=== PATIENT | female | born 1970 | race Caucasian/White ===

== ENCOUNTER → 2018-04-19 09:35 | Outpatient (CLI) | payer BC, MEDICARE ==
[2015-05-16 14:41] VITALS: BMI 23.3
[~2018-04-19 09:35] MED LIST: APRISO0.375 GM PO; CYMBALTA60 MG PO; LIBRAX CAPSULE1 CAP PO; LIPITOR20 MG PO; NEURONTIN 300300 MG PO; PRILOSEC20 MG PO
[2018-04-19 10:08] LABS: BASOPHILS 0.3 % (0-2); EOSINOPHILS 1.9 % (0-7); HEMATOCRIT 39.6 % (36.0-48.0); HEMOGLOBIN 13.4 g/dL (12-16); IMMATURE GRANULOCYTES 0.2 % (0-5); LYMPHOCYTES 41.8 % (15-50); MCH 27.8 pg (26.0-34.0); MCHC 33.8 g/dL (31.0-37.0); MCV 82.2 fL (80.0-100.0); MEAN PLATELET VOLUME 8.6 fL (7.4-10.4); MONOCYTES 8.7 % (2-11); NEUTROPHILS 47.1 % (40-80); PLATELET COUNT 250 10x3/uL (130-400); RBC 4.82 10x6/uL (4.00-5.40); WBC 5.9 10x3/uL (4.8-10.8)
[2018-04-19 10:23] LABS: ALBUMIN 3.5 g/dL (3.4-5.0); ANION GAP 12.8 mmol/L (8-16); BILIRUBIN - TOTAL 0.32 mg/dL (0.2-1.3); CALCIUM 8.7 mg/dL (8.5-10.1); CARBON DIOXIDE 28.6 mmol/L (21.0-32.0); POTASSIUM - SERUM 4.4 mmol/L (3.5-5.1); PROTEIN - SERUM 7.1 g/dL (6.4-8.2)
[2018-04-19 11:48] LABS: ERYTHROCYTE SEDIMENTATION RATE 3 mm/hr (0-20)
== END ==
LOC: D.LAB 09:35
PROVIDERS: Internal Medicine Gastroenterology
DX: R10.13 Epigastric pain (principal); Z87.19 Personal history of other diseases of the digestive system; K92.1 Melena; R19.4 Change in bowel habit

== ENCOUNTER → 2018-05-06 14:16 | Outpatient (CLI) | payer BC, MEDICARE ==
[2015-05-16 14:41] VITALS: BMI 23.3
[2018-05-09 13:12] LABS: ANTIPARIETAL CELL ANTIBODY 0.8 Units (0.0-20.0); INTRINSIC FACTOR ANTIBODY 0.9 AU/mL (0.0-1.1)
== END | disposition home or self-care (01) ==
LOC: D.LAB 10:30
PROVIDERS: Internal Medicine Gastroenterology
DX: K29.50 Unspecified chronic gastritis without bleeding (principal)

== ENCOUNTER → 2018-05-23 12:17 | Outpatient (CLI) | payer BC, MEDICARE ==
[2015-05-16 14:41] VITALS: BMI 23.3
== END | disposition home or self-care (01) ==
LOC: D.CT 05-16 11:00
DX: R22.1 Localized swelling, mass and lump, neck (principal)

== ENCOUNTER → 2018-12-23 10:15 | Outpatient (CLI) | payer BC, MEDICARE ==
[2015-05-16 14:41] VITALS: BMI 23.3
== END | disposition home or self-care (01) ==
LOC: D.CT 10:15
PROVIDERS: ATTEND Internal Medicine Gastroenterology
DX: R19.00 Intra-abdominal and pelvic swelling, mass and lump, unspecified site (principal); R10.9 Unspecified abdominal pain